=== PATIENT | male | born 1965 | race Two or more races ===

== ENCOUNTER 2023-07-25 15:20 | Emergency (ER) | payer OTHER ==
[~2023-07-25] VITALS: Ht 180.3 cm; Wt 91.6 kg
[2023-07-25 16:14] VITALS: BP 139/89; PULSE 65; RESP 18; TEMP 97.7; O2SAT 97
[2023-07-25] MEDS ORDERED: LID5T TP (17:30)
[2023-07-25] MEDS ORDERED: CYCL-711 PO (17:30)
[2023-07-25] MEDS ORDERED: IBUP-2213 PO (17:30)
[2023-07-25] MEDS ORDERED: IBUPROFEN 600 MG TAB PO ONE (17:35)
[2023-07-25 18:00] VITALS: BP 139/89; PULSE 65; RESP 18; TEMP 97.7; O2SAT 97
== END 2023-07-25 18:00 | disposition home or self-care (01) ==
LOC: MED 15:20
DX: S16.1XXA Strain of muscle, fascia and tendon at neck level, initial encounter (principal); R51.9 Headache, unspecified; I10 Essential (primary) hypertension; Z79.899 Other long term (current) drug therapy; V49.88XA Car occupant (driver) (passenger) injured in other specified transport accidents, initial encounter; Y93.89 Activity, other specified; Y92.89 Other specified places as the place of occurrence of the external cause; Y99.8 Other external cause status
CPT/HCPCS: 70450; 73030; 99284